=== PATIENT | male | born 1960 | race Hispanic/Latino ===

== ENCOUNTER 2023-03-25 11:57 | Emergency (ER) | payer BC, MEDICAID ==
[~2023-03-25] VITALS: Ht 170.2 cm; Wt 81.6 kg
[2023-03-25 12:37] LABS: BASOPHILS % (AUTO) 0.9 % (0.0-5.0); EOSINOPHILS % (AUTO) 2.6 % (0.0-8.0); HEMATOCRIT 31.9 % (42-54); LYMPHOCYTES % (AUTO) 13.2 % (21.0-51.0); MEAN CORPUSCULAR HEMOGLOBIN 29.1 pg (27.0-33.0); MEAN CORPUSCULAR HGB CONC 32.6 g/dL (32.0-36.0); MEAN CORPUSCULAR VOLUME 89.4 fL (79-99); MONOCYTES % (AUTO) 9.9 % (3.0-13.0); NEUTROPHILS % (AUTO) 73.1 % (40.0-77.0); PLATELET COUNT (AUTO) 247 K/uL (130-400); RED BLOOD CELL COUNT(AUTO) 3.57 MIL/uL (4.50-6.20); RED CELL DISTRIBUTION WIDTH 17.2 % (11.0-15.5); WHITE BLOOD COUNT (AUTO) 10.3 K/uL (4.8-10.8)
[2023-03-25 12:50] LABS: ALBUMIN 3.3 g/dL (3.5-5.0); POTASSIUM 5.5 mmol/L (3.5-5.1); TOTAL PROTEIN, SERUM 7.3 g/dL (6.0-8.3)
[2023-03-25 12:51] LABS: CREATININE 8.6 mg/dL (0.5-1.5)
[2023-03-25 20:23] VITALS: BP 148/76
== END 2023-03-25 20:58 | disposition home or self-care (01) ==
LOC: EDH 11:57
DX: E11.649 Type 2 diabetes mellitus with hypoglycemia without coma (principal); I10 Essential (primary) hypertension; E78.00 Pure hypercholesterolemia, unspecified; Z98.890 Other specified postprocedural states
CPT/HCPCS: 36415; 80053; 82948; 85025

== ENCOUNTER → 2023-04-21 | Outpatient (CLI) | payer BC, MEDICAID ==
[2023-04-21 16:16] LABS: HEMATOCRIT 38.6 % (42-54); MEAN CORPUSCULAR HEMOGLOBIN 29.9 pg (27.0-33.0); MEAN CORPUSCULAR HGB CONC 31.6 g/dL (32.0-36.0); MEAN CORPUSCULAR VOLUME 94.6 fL (79-99); RED BLOOD CELL COUNT(AUTO) 4.08 MIL/uL (4.50-6.20); RED CELL DISTRIBUTION WIDTH 15.9 % (11.0-15.5); WHITE BLOOD COUNT (AUTO) 7.1 K/uL (4.8-10.8)
[2023-04-21 16:24] LABS: INR 0.96 (0.85-1.15); PROTHROMBIN TIME 10.5 SEC (9.6-11.6)
[2023-04-21 16:25] LABS: PARTIAL THROMBOPLASTIN TIME 20.5 SEC (26.3-35.5)
[2023-04-21 16:36] LABS: CREATININE 6.3 mg/dL (0.5-1.5)
[2023-04-21 16:55] LABS: POTASSIUM 6.2 mmol/L (3.5-5.1)
== END | disposition home or self-care (01) ==
LOC: DAH 10:00 → EDSTATUS 16:00
PROVIDERS: ATTEND Thoracic Surgery (Cardiothoracic Vascular Surgery)
DX: Z01.818 Encounter for other preprocedural examination (principal); Z20.822 Contact with and (suspected) exposure to COVID-19; I77.0 Arteriovenous fistula, acquired; N18.6 End stage renal disease; Z53.8 Procedure and treatment not carried out for other reasons
CPT/HCPCS: 71045; 87426; 80048; 85027; 85610; 85730; 86850; 86900; 86901; 36415; 93005; A6260

== ENCOUNTER 2023-06-03 09:53 | Observation (INO) | payer BC, MEDICAID ==
[2023-06-02 18:04] VITALS: BP 139/72; PULSE 77; RESP 20
[2023-06-02 18:14] LABS: HEMATOCRIT 41.2 % (42-54); MEAN CORPUSCULAR HEMOGLOBIN 30.1 pg (27.0-33.0); MEAN CORPUSCULAR VOLUME 94.1 fL (79-99); RED BLOOD CELL COUNT(AUTO) 4.38 MIL/uL (4.50-6.20); RED CELL DISTRIBUTION WIDTH 12.1 % (11.0-15.5); WHITE BLOOD COUNT (AUTO) 8.2 K/uL (4.8-10.8)
[2023-06-02 18:27] LABS: CREATININE 7.5 mg/dL (0.5-1.5); POTASSIUM 5.9 mmol/L (3.5-5.1)
[2023-06-02 18:30] LABS: INR 0.94 (0.85-1.15); PROTHROMBIN TIME 10.9 SEC (9.6-11.6)
[2023-06-02 18:31] LABS: PARTIAL THROMBOPLASTIN TIME 26.6 SEC (26.3-35.5)
[2023-06-03] VITALS (18 sets, daily range): BP systolic 110–183; BP diastolic 64–82; PULSE 64–83; RESP 16–20; TEMP 97.9–98.5; O2SAT 98
[~2023-06-03] VITALS: Ht 177.8 cm; Wt 69.9 kg
[~2023-06-03 09:53] MED LIST: ACET-2743 PO; ATOR40TA71 PO; CARV25TA PO; CLOP-31 PO; DOCU-116 PO; GABA300S3 PO; GLUC1VIA19 IM; INSU100C6 SQ; INSU100I26 SQ; LACT10SO9 PO; NEPHRO-VITE PO; ONDA4AMP IM; SEVE800T7 PO; SIME125C81 PO; VITAD50000 PO
[2023-06-03] MEDS ORDERED: CEFAZOLIN SODIUM 2 GM VIAL ONE (10:06)
[2023-06-03] MEDS ORDERED: 0.9% NACL 500ML IV.SOLN 500 ML IV ONE (10:06)
[2023-06-03 11:45] LABS: CREATININE 9.1 mg/dL (0.5-1.5); POTASSIUM 8.1 mmol/L (3.5-5.1)
[2023-06-03 12:27] LABS: ABG BASE EXCESS -4.5 mmol/L (-2.0-3.0); ABG HCO3 21.2 mmol/L (21.0-28.0); ABG OXYGEN SATURATION 97.2 % (95.0-99.0); ABG PCO2 41 mmHg (35-48); HHb 2.7; PO2, ARTERIAL BG 92.5 mmHg (83.0-108.0); VENT MODE, BG RA (ROOM AIR)
[2023-06-03] MEDS ORDERED: [UNRECOGNIZED DRUG - OTHER] IV SCH (12:30)
[2023-06-03] MEDS ORDERED: NA ZIRCON CYCLOSIL(LOKELMA 10GM) PO ONE (12:30)
[2023-06-03] MEDS ORDERED: CALCIUM GLUC IV SCH (12:30)
[2023-06-03] MEDS ORDERED: CALCIUM GLUC 1GM 1 GM in 0.9%NACL 100ML 100 ML IV SCH (13:00)
[2023-06-03] MEDS ORDERED: ACETAMINOPHEN 325 MG TAB PO PRN (13:30)
[2023-06-03] MEDS ORDERED: ONDANSETRON 4MG INJ IVP PRN (13:30)
[2023-06-03] MEDS: INSULIN HUMULIN R 100 UNIT/ML 3ML SQ SCH ×2 (16:30→21:00)
[2023-06-03] MEDS ORDERED: GLUCAGON HCL 1 MG IM PRN (17:00)
[2023-06-03] MEDS ORDERED: HEPARIN 5,000 UNIT VIAL IRRIG PRN (17:30)
[2023-06-03] MEDS ORDERED: GLUCAGON 1MG KIT 1 MG ML IM PRN (17:30)
[2023-06-03] MEDS: SEVELAMER HCL 800 MG TABLET PO SCH (18:22)
[2023-06-03 18:59] LABS: CREATININE 5.5 mg/dL (0.5-1.5); POTASSIUM 4.9 mmol/L (3.5-5.1)
[2023-06-03] MEDS: GABAPENTIN 300 MG CAPSULE PO SCH (21:04)
[2023-06-03] MEDS: CARVEDILOL 25 MG TABLET PO SCH (21:05)
[2023-06-03] MEDS: ATORVASTATIN 40 MG TABLET PO SCH (21:05)
[2023-06-04] VITALS (34 sets, daily range): BP systolic 104–159; BP diastolic 59–94; PULSE 59–78; RESP 15–20; TEMP 97.7–98.5; O2SAT 98
[2023-06-04 03:40] LABS: BASOPHILS # (AUTO) 0.09 K/uL (0.00-0.20); BASOPHILS % (AUTO) 1.3 % (0.0-5.0); EOSINOPHILS # (AUTO) 0.18 K/uL (0.00-0.70); EOSINOPHILS % (AUTO) 2.6 % (0.0-8.0); HEMATOCRIT 37.4 % (42-54); LYMPHOCYTES # (AUTO) 2.1 K/uL (1.0-4.8); LYMPHOCYTES % (AUTO) 30.7 % (21.0-51.0); MEAN CORPUSCULAR HEMOGLOBIN 30.1 pg (27.0-33.0); MEAN CORPUSCULAR HGB CONC 33.7 g/dL (32.0-36.0); MEAN CORPUSCULAR VOLUME 89.3 fL (79-99); MONOCYTES # (AUTO) 0.8 K/uL (0.1-1.0); MONOCYTES % (AUTO) 11.5 % (3.0-13.0); NEUTROPHILS # (AUTO) 3.6 K/uL (1.8-7.7); NEUTROPHILS % (AUTO) 52.5 % (40.0-77.0); PLATELET COUNT (AUTO) 204 K/uL (130-400); RED BLOOD CELL COUNT(AUTO) 4.19 MIL/uL (4.50-6.20); RED CELL DISTRIBUTION WIDTH 11.9 % (11.0-15.5); WHITE BLOOD COUNT (AUTO) 6.9 K/uL (4.8-10.8)
[2023-06-04 03:51] LABS: INR 0.94 (0.85-1.15); PROTHROMBIN TIME 10.9 SEC (9.6-11.6)
[2023-06-04 03:52] LABS: PARTIAL THROMBOPLASTIN TIME 28.1 SEC (26.3-35.5)
[2023-06-04 03:55] LABS: ALBUMIN 3.5 g/dL (3.5-5.0); BILIRUBIN,TOTAL 0.2 mg/dL (0.2-1.0); CREATININE 7.5 mg/dL (0.5-1.5); PHOSPHORUS 6.3 mg/dL (2.5-4.9); POTASSIUM 5.4 mmol/L (3.5-5.1); TOTAL PROTEIN, SERUM 7.4 g/dL (6.0-8.3)
[2023-06-04 04:35] LABS: HEPATITIS B SURFACE ANTIGEN Non-Reactive (Nonreactive)
[2023-06-04] MEDS: SEVELAMER HCL 800 MG TABLET PO SCH ×3 (06:47→16:45)
[2023-06-04] MEDS: INSULIN HUMULIN R 100 UNIT/ML 3ML SQ SCH ×4 (06:47→20:12)
[2023-06-04] MEDS ORDERED: Vitamin B Complex/Vit C/Folic Acid PO SCH (09:00)
[2023-06-04] MEDS ORDERED: FAMOTIDINE 20MG TAB PO SCH (09:00)
[2023-06-04] MEDS: CARVEDILOL 25 MG TABLET PO SCH ×2 (09:10→20:10)
[2023-06-04] MEDS ORDERED: HEPARIN 5,000 UNIT VIAL IV SCH (09:30)
[2023-06-04] MEDS ORDERED: CEFAZOLIN SODIUM 1 GM VIAL ONE ×2 (15:53→16:49)
[2023-06-04] MEDS ORDERED: LIDOCAINE HCL 1% 20 ML VIAL ONE (15:53)
[2023-06-04] MEDS ORDERED: BUPIVACAINE/PF 0.25% 30ML VIAL IJ ONE ×3 (15:54→18:18)
[2023-06-04] MEDS ORDERED: PROPOFOL 10 MG/ML 20ML VIAL IV ONE (16:07)
[2023-06-04] MEDS ORDERED: FENTANYL CITRATE PF 50 MCG/1 ML 2ML VIAL ONE ×3 (16:07→18:15)
[2023-06-04] MEDS ORDERED: MIDAZOLAM HCL 1 MG/ML 2ML VIAL ONE (16:08)
[2023-06-04] MEDS ORDERED: ONDANSETRON 4MG INJ ONE (16:08)
[2023-06-04] MEDS ORDERED: ROCURONIUM 10MG/1ML SYR 10 MG/ML ML ONE (16:17)
[2023-06-04] MEDS ORDERED: PHENYLEPHRINE HCL 10 MG/ML 1ML VIAL IV ONE ×3 (16:27→16:38)
[2023-06-04] MEDS ORDERED: EPHEDRINE SULFATE 50 MG/ML AMPULE ONE (16:27)
[2023-06-04] MEDS ORDERED: CEFAZOLIN SODIUM 2 GM VIAL IVPB ONE (16:40)
[2023-06-04] MEDS ORDERED: CEFAZOLIN SODIUM 1 GM VIAL IRRIG ONE (17:00)
[2023-06-04] MEDS ORDERED: LIDOCAINE HCL 1% 20 ML VIAL INJ ONE ×2 (17:44→18:18)
[2023-06-04] MEDS ORDERED: ACETAMINOPHEN 325 MG TAB PO PRN (18:00)
[2023-06-04] MEDS ORDERED: TRAMADOL HCL 50 MG TABLET PO PRN ×2 (18:00)
[2023-06-04] MEDS ORDERED: GLYCOPYRROLATE 1 MG/5 ML SYRINGE ONE (18:14)
[2023-06-04] MEDS ORDERED: NEOSTIGMINE 5MG/5ML SYR IV ONE (18:15)
[2023-06-04] MEDS: ATORVASTATIN 40 MG TABLET PO SCH (20:10)
[2023-06-04] MEDS: GABAPENTIN 300 MG CAPSULE PO SCH (20:11)
[2023-06-05] MEDS ORDERED: ERGOCALCIFEROL (VITAMIN D2) 50,000 UNIT CAPSULE PO SCH (09:00)
== END 2023-06-04 20:45 ==
LOC: DAH 09:53 → DAHIP 09:54 → 2DH 13:56
PROVIDERS: ADMIT Internal Medicine; ATTEND Internal Medicine
DX: I12.0 Hypertensive chronic kidney disease with stage 5 chronic kidney disease or end stage renal disease (principal); Z20.822 Contact with and (suspected) exposure to COVID-19; E11.22 Type 2 diabetes mellitus with diabetic chronic kidney disease; N18.6 End stage renal disease; D63.1 Anemia in chronic kidney disease; E78.5 Hyperlipidemia, unspecified; E87.5 Hyperkalemia; G81.91 Hemiplegia, unspecified affecting right dominant side; I63.9 Cerebral infarction, unspecified; I69.341 Monoplegia of lower limb following cerebral infarction affecting right dominant side; Q33.3 Agenesis of lung; Z53.9 Procedure and treatment not carried out, unspecified reason; Z99.2 Dependence on renal dialysis; Z79.02 Long term (current) use of antithrombotics/antiplatelets; Z79.899 Other long term (current) drug therapy
CPT/HCPCS: 80048 ×3; 85027; 85610 ×2; 85730 ×2; 86850; 86900; 86901; 87426; 36415 ×3; 71045; 93005 ×3; 96365; 82435; 82947; 84132 ×2; 84295; 82803; 85018; 82948 ×6; 83605; 86706; 87340; 86704; 36600; 36819; 96375; 83735; 84100; 80053; 85025; A6260; G0378 ×25; A4663; J7040; J0610; J1644 ×3; J1815; A4223; A4222; A4221; A6207; J7030; A4649 ×2; J3010 ×3; J0690 ×4; J3490 ×4; J2710; J2250; J2704; J2405; J2371 ×3; C9250; G0168; C1713 ×3; C1768; A4930; 90935